=== PATIENT | male | born 1960 | race Caucasian/White ===

== ENCOUNTER 2016-10-19 07:23 | Outpatient (CLI) | payer MEDICARE ==
[2016-10-19 08:13] LABS: BASOPHILS % 1.3 (0.0-1.5); EOSINOPHILS % 1.7 % (0.0-6.8); MEAN CORPUSCULAR HEMOGLOBIN 34.1 pg (28.0-34.0); MEAN CORPUSCULAR VOLUME 103.3 fl (80.0-100.0); MONOCYTES % 6.7 % (0.0-11.0); NEUTROPHILS # 6.3 # k/uL (1.4-7.7)
[2016-10-19 08:49] LABS: eGFR (African) > 60; eGFR (Non-African) > 60
== END 2016-10-19 07:24 ==
LOC: LAB 07:23
PROVIDERS: ATTEND Family Medicine
DX: E03.9 Hypothyroidism, unspecified (principal); E78.5 Hyperlipidemia, unspecified; N18.1 Chronic kidney disease, stage 1; D50.8 Other iron deficiency anemias
CPT/HCPCS: 36415; 80053; 80061; 83540; 84443; 85025